=== PATIENT | male | born 1960 | race Caucasian/White ===

== ENCOUNTER 2023-07-26 14:36 | Emergency (ER) | payer SELFPAY ==
[~2023-07-26] VITALS: Ht 172.7 cm; Wt 100.0 kg
[2023-07-26 15:08] VITALS: BP 127/52; PULSE 76; RESP 20; O2SAT 100
[2023-07-26 15:30] VITALS: TEMP 98.8
[2023-07-26] MEDS ORDERED: ACETAMINOPHEN 325MG TABLET PO ONE (15:30)
== END 2023-07-26 17:27 | disposition home or self-care (01) ==
LOC: ER 14:55
DX: S09.90XA Unspecified injury of head, initial encounter (principal); M79.631 Pain in right forearm; M79.642 Pain in left hand; E11.9 Type 2 diabetes mellitus without complications; W18.30XA Fall on same level, unspecified, initial encounter; Y93.89 Activity, other specified; Y92.89 Other specified places as the place of occurrence of the external cause; Y99.8 Other external cause status
CPT/HCPCS: 73030; 73090; 73110; 73130; 73590; 73630; 99284